=== PATIENT | male | born 1955 | race Caucasian/White ===

== ENCOUNTER 2017-10-05 13:50 | Emergency (ER) | payer MEDICAID, SELFPAY ==
[2017-10-05 13:51] VITALS: BP 162/97; PULSE 102; RESP 18; TEMP 36.7; O2SAT 96; BMI 26.9
== END 2017-10-05 15:20 | disposition left against medical advice (07) ==
PROVIDERS: Emergency Provider Emergency Medicine; Family Provider Preventive Medicine Occupational Medicine; PCP Preventive Medicine Occupational Medicine
DX: R69 Illness, unspecified (principal)

== ENCOUNTER → 2018-05-27 08:09 | Outpatient (CLI) | payer MEDICARE, SELFPAY ==
[2018-05-27 09:07] LABS: BUN 13 mg/dL (7-18); Creatinine, Serum 1.06 mg/dL (0.70-1.30); EST Glomerular Filtration Rate 75 mL/min (>60); Est Glom Filt Rate - Afr Amer 90 mL/min (>60)
== END ==
PROVIDERS: Family Provider Preventive Medicine Occupational Medicine; PCP Preventive Medicine Occupational Medicine
DX: M54.16 Radiculopathy, lumbar region (principal)
CPT/HCPCS: 36415; 82565; 84520

== ENCOUNTER 2019-04-23 23:41 | Emergency (ER) | payer MEDICARE, OTHER, SELFPAY ==
[2019-04-23 23:42] VITALS: BP 168/89; PULSE 86; RESP 24; TEMP 36.5; O2SAT 77; BMI 29.0
[2019-04-23 23:46] VITALS: O2SAT 99
[2019-04-23 23:52] VITALS: BP 145/91; PULSE 86; RESP 20; O2SAT 100
[2019-04-24] VITALS (9 sets, daily range): BP systolic 92–116; BP diastolic 60–83; PULSE 76–92; RESP 8–21; O2SAT 84–100
--- NOTE | 2019-04-24 00:30 | RAD_ITS ---
STUDY: X-RAY CHEST REASON FOR EXAM: Male, 63 years old. SOB, COPD TECHNIQUE: Single AP portable view of the chest. COMPARISON: 01/25/2017. FINDINGS: There is mild left basilar atelectasis. The lungs are slightly underexpanded with mild vascular crowding, otherwise clear. There is no demonstrated pleural abnormality. Normal size heart. Normal mediastinum and mere. Normal visualized pulmonary arteries. There is atherosclerotic calcification of the aortic arch with tortuosity. There are diffuse degenerative changes of the visualized thoracic spine. There is degenerative osteoarthritis of the bilateral shoulders. There is no demonstrated abnormality of the visualized soft tissue structures of the upper abdomen. RAD/Chest 1 View (Portable) IMPRESSION: Mild left basilar atelectasis, otherwise no acute cardiopulmonary process. Electronically Signed: Madeleine Rasheed MD at 1:12 EST , Service support ,
--- NOTE | 2019-04-24 00:45 | EKG12_ITS ---
Test Reason : SOB Blood Pressure : / mmHG Vent. Rate : 093 BPM Atrial Rate : 093 BPM P-R Int : 154 ms QRS Dur : 082 ms QT Int : 380 ms P-R-T Axes : 034 007 014 degrees QTc Int : 472 ms Normal sinus rhythm Normal ECG Confirmed by KAR ARREGUIN, KITTY ([id number]), movie editor JORGITO NGUYEN ([id number]) on 04/26/2019 8:22:49 AM Referred By: FELICIA Confirmed By:KITTY LAKHANI MD
[2019-04-24 01:07] LABS: Absolute Lymphocyte Count 3.92 X10^3/uL (0.83-4.51); Basophil# 0.06 X10^3/uL; Basophil% 0.8 % (0-1); Eosinophil# 0.16 X10^3/uL; Hematocrit 48.5 % (40-54); Hemoglobin 15.9 g/dL (13.0-16.5); Lymphocyte # 3.92 X10^3/ul (4.0); Lymphocyte % 49.3 % (19-41); Mean Corp Hgb Conc 32.8 g/dL (32-36); Mean Corpuscular Hgb 31.8 pg (27.0-32.0); Mean Platelet Vol. 10.1 fl (6.2-12.0); Monocyte% 10.1 % (0-10); NRBC Flagged by Analyzer 0 % (0-5); Neutrophil # 2.97 X10^3/uL (2.7-7.7); Neutrophil % 37.3 % (47-70); POSITIVE COUNT YES; Platelet Count 311 K/mm3 (150-450); RBC Distribution Width CV 13.3 % (11.6-14.6); RBC Distribution Width SD 48.2 fl (35.1-43.9)
[2019-04-24 01:19] LABS: Anion Gap 7 (5-15); BUN 6 mg/dL (7-18); BUN/Creat Ratio 6.4 RATIO (10-20); Calcium,Total 8.7 mg/dL (8.5-10.1); Chloride 112 mmol/L (98-107); Creatinine, Serum 0.94 mg/dL (0.70-1.30); EST Glomerular Filtration Rate 85 mL/min (>60); Est Glom Filt Rate - Afr Amer 103 mL/min (>60); Estimated Creatinine Clearance 78.35 ml/min; Glucose 109 mg/dL (74-106); Potassium 3.4 mmol/L (3.5-5.1); Sodium Level 143 mmol/L (136-145)
[2019-04-24 01:25] LABS: Differential Comment SCANNED; Differential Indicated SCAN CRITERIA MET
--- NOTE | 2019-04-24 01:57 | CT_ITS ---
STUDY: CTA CHEST REASON FOR EXAM: Male, 63 years old. HYPOXIA, BACK PAIN, SOB, FELL 3 WEEKS AGO, HX COPD, EMPHYSEMA, ASBESTOS EXPOSURE, SKIN CA, HTN RADIATION DOSAGE (If Supplied By Facility): CTDIvol = ( 10.07 ) mGy, DLP = ( 441.40 ) mGycm TECHNIQUE: The examination was performed with the intravenous administration of IV 75mL Isovue-370. Post-processing of the angiographic images was performed, with multiplanar reformation and 3D reconstruction. Individualized dose optimization techniques were used for this CT. COMPARISON: None. FINDINGS: Normal enhancement of the main pulmonary artery and right and left pulmonary arteries. Normal enhancement of the bilateral peripheral pulmonary arteries. There is no demonstrated pulmonary embolism. Normal thoracic aorta and visualized great vessels. There is no demonstrated aortic dissection. Normal heart and pericardium. Normal mediastinum. Normal hilar regions. Normal visualized trachea and bronchi. The lungs are well expanded. Minimal bilateral posterior dependent atelectasis, remainder the lungs are clear. Normal pleura. Normal chest wall structures. Normal osseous structures. Normal visualized upper abdomen. CT/CTA Chest W/WO Contrast IMPRESSION: Negative CTA chest examination, without a demonstrated pulmonary embolism or arterial dissection. Minimal bilateral basilar atelectasis, otherwise no acute cardiopulmonary disease. Electronically Signed: Madeleine Rasheed MD at 3:18 EST , Service support ,
--- NOTE | 2019-04-24 01:57 | ED.RN ---
MD aware pt dropped SpO2 to 84% with appropriate waveform. reapplied NC 4L
[2019-04-24] MEDS: Ipratropium/Albuterol Sulfate 3 ML AMPUL.NEB INHALATION (02:07)
[2019-04-24] MEDS: Albuterol 2.5 MG/3 ML VIAL.NEB. INHALATION (02:07)
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
== END 2019-04-24 05:26 | disposition home or self-care (01) ==
PROVIDERS: Emergency Provider Emergency Medicine; PCP Preventive Medicine Occupational Medicine
DX: J98.01 Acute bronchospasm (principal); F10.129 Alcohol abuse with intoxication, unspecified; F10.20 Alcohol dependence, uncomplicated; Z72.0 Tobacco use
CPT/HCPCS: 71045; 71275; 80048; 80320; 84484; 85025; 93005; 94640; 99285; Q9967; A4216; G0480; J2405

== ENCOUNTER 2019-07-11 03:30 | Emergency (ER) | payer MEDICARE, OTHER, SELFPAY ==
[2019-07-11 03:34] VITALS: BP 156/100; PULSE 99; RESP 28; TEMP 37.1; O2SAT 100; BMI 28.5
--- NOTE | 2019-07-11 03:45 | RAD_ITS ---
STUDY: X-RAY CHEST REASON FOR EXAM: Male, 63 years old. CHRONIC SOB -- HX OF COPD TECHNIQUE: AP portable COMPARISON: 04/24/2019. FINDINGS: The lungs are clear and expanded. There is no demonstrated pleural abnormality. Normal size heart. Normal mediastinum and mere. Normal visualized pulmonary arteries. Normal visualized aortic arch and descending thoracic aorta. There are diffuse degenerative changes of the visualized thoracic spine. Normal visualized ribs, clavicles, and shoulders. There is no demonstrated abnormality of the visualized soft tissue structures of the upper abdomen. RAD/Chest 1 View (Portable) IMPRESSION: Negative x-ray examination of the chest. Electronically Signed: Luiz Escudero, at 4:19 EDT Tel , Service support ,
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
--- NOTE | 2019-07-11 03:45 | EKG12_ITS ---
Test Reason : SOB Blood Pressure : / mmHG Vent. Rate : 086 BPM Atrial Rate : 086 BPM P-R Int : 166 ms QRS Dur : 082 ms QT Int : 380 ms P-R-T Axes : 032 011 027 degrees QTc Int : 454 ms Normal sinus rhythm Normal ECG Confirmed by ARGELIA ARREGUIN, DILAN ([id number]), editor book NEHA BANDA ([id number]) on 07/13/2019 9:34:13 AM Referred By: FAUSTO Confirmed By:DILAN STOUT MD
[2019-07-11 04:02] LABS: Absolute Lymphocyte Count 2.34 X10^3/uL (0.83-4.51); Absolute Neutrophil Count 4.1 X10^3/uL (2.0-7.7); Basophil# 0.05 X10^3/uL; Basophil% 0.7 % (0-1); Eosinophil# 0.14 X10^3/uL; Eosinophils% 1.9 % (0-5); Hematocrit 49.2 % (40-54); Hemoglobin 16.2 g/dL (13.0-16.5); Lymphocyte # 2.34 X10^3/ul (4.0); Mean Corp Hgb Conc 32.9 g/dL (32-36); Mean Corpuscular Volume 97.2 fL (80-94); Mean Platelet Vol. 9.5 fl (6.2-12.0); Monocyte# 0.94 X10^3/uL; Monocyte% 12.5 % (0-10); NRBC Flagged by Analyzer 0 % (0-5); Neutrophil # 4.05 X10^3/uL (2.7-7.7); Neutrophil % 53.5 % (47-70); Platelet Count 297 K/mm3 (150-450); RBC Distribution Width CV 13.3 % (11.6-14.6); RBC Distribution Width SD 47.9 fl (35.1-43.9); Red Blood Count 5.06 M/mm3 (4.6-6.2); White Blood Count 7.6 K/mm3 (4.4-11.0)
[2019-07-11 04:17] LABS: Anion Gap 9 (5-15); BUN 7 mg/dL (7-18); BUN/Creat Ratio 9.2 RATIO (10-20); Calcium,Total 8.8 mg/dL (8.5-10.1); Chloride 108 mmol/L (98-107); Creatinine, Serum 0.76 mg/dL (0.70-1.30); EST Glomerular Filtration Rate 108 mL/min (>60); Est Glom Filt Rate - Afr Amer 131 mL/min (>60); Glucose 106 mg/dL (74-106); Potassium 3.7 mmol/L (3.5-5.1); Sodium Level 141 mmol/L (136-145)
--- NOTE | 2019-07-11 04:18 | ED.DEP ---
ED Disposition - Plan for ED Patient: Disposition: Home or Assisted Living Instructions: ED COPD Flare Prescriptions: Prednisone [Deltasone] 40 mg PO DAILY 7 Days tab Prescription Printed Referrals: Ousmane Lopez DO [Primary Care Provider] - 3-5 Days if not improving Additional Instructions: Prednisone daily as needed for any shortness of breath or wheezing. Follow-up with your doctor as needed. Return if feeling worse.
[2019-07-11 04:32] VITALS: BP 138/80; PULSE 90; RESP 18; O2SAT 95
== END 2019-07-11 04:57 | disposition home or self-care (01) ==
PROVIDERS: Emergency Provider Emergency Medicine; PCP Preventive Medicine Occupational Medicine
DX: J44.1 Chronic obstructive pulmonary disease with (acute) exacerbation (principal); F17.200 Nicotine dependence, unspecified, uncomplicated; I10 Essential (primary) hypertension
CPT/HCPCS: 71045; 80048; 84484; 85025; 93005; 99285; A4216

== ENCOUNTER → 2019-07-26 15:22 | Outpatient (CLI) | payer MEDICARE, OTHER, SELFPAY ==
[2019-07-11 03:34] VITALS: BMI 28.5
--- NOTE | 2019-07-26 15:27 | RAD_ITS ---
STUDY: X-RAY - RIGHT SHOULDER REASON FOR EXAM: Male, 63 years old. Right shoulder pain after fall TECHNIQUE: 4 view(s) of the shoulder. COMPARISON: None. FINDINGS: Normal glenohumeral articulation. There is hypertrophic osteoarthrosis of the acromioclavicular joint with inferior osseous spur formation. Normal acromion. Normal humeral head and visualized proximal humerus. The soft tissue structures are unremarkable. Normal visualized pulmonary apex. RAD/Shoulder min 2 Views IMPRESSION: Osteoarthritis of the right acromioclavicular joint. Electronically Signed: Shiraz Rodriguez, at 15:50 EDT , Service support ,
== END ==
PROVIDERS: PCP Preventive Medicine Occupational Medicine; Referring Provider Student in an Organized Health Care Education/Training Program; Visit Provider Student in an Organized Health Care Education/Training Program
DX: M25.511 Pain in right shoulder (principal)
CPT/HCPCS: 73030

== ENCOUNTER → 2019-09-08 14:52 | Outpatient (CLI) | payer MEDICARE, OTHER, SELFPAY ==
--- NOTE | 2019-09-08 15:03 | EKG12_ITS ---
Test Reason : PREOP Blood Pressure : / mmHG Vent. Rate : 069 BPM Atrial Rate : 069 BPM P-R Int : 156 ms QRS Dur : 074 ms QT Int : 410 ms P-R-T Axes : 043 041 039 degrees QTc Int : 439 ms Normal sinus rhythm Normal ECG Confirmed by ZION ARREGUIN, SAIRA ([id number]), social media editor JORGITO NGUYEN ([id number]) on 09/12/2019 9:53:53 AM Referred By: Mark Sexton Confirmed By:PATRICIA DNOOVAN MD
[2019-09-08 15:46] LABS: Hematocrit 49.3 % (40-54); Mean Corp Hgb Conc 32.5 g/dL (32-36); Mean Corpuscular Hgb 32.3 pg (27.0-32.0); Mean Corpuscular Volume 99.4 fL (80-94); Mean Platelet Vol. 9.8 fl (6.2-12.0); Platelet Count 338 K/mm3 (150-450); RBC Distribution Width CV 13.7 % (11.6-14.6); RBC Distribution Width SD 50.8 fl (35.1-43.9); Red Blood Count 4.96 M/mm3 (4.6-6.2); White Blood Count 8.6 K/mm3 (4.4-11.0)
[2019-09-08 16:22] LABS: Anion Gap 6 (5-15); BUN 11 mg/dL (7-18); BUN/Creat Ratio 12.9 RATIO (10-20); Calcium,Total 8.9 mg/dL (8.5-10.1); Chloride 103 mmol/L (98-107); Creatinine, Serum 0.85 mg/dL (0.70-1.30); EST Glomerular Filtration Rate 96 mL/min (>60); Est Glom Filt Rate - Afr Amer 116 mL/min (>60); Glucose 93 mg/dL (74-106); Potassium 3.6 mmol/L (3.5-5.1); Sodium Level 137 mmol/L (136-145)
== END ==
PROVIDERS: Referring Provider Physician Assistant; Visit Provider Physician Assistant
DX: Z01.818 Encounter for other preprocedural examination (principal)
CPT/HCPCS: 36415; 80048; 85027; 93005

== ENCOUNTER → 2019-09-16 10:17 | Outpatient (CLI) | payer MEDICARE, OTHER, SELFPAY | PROVIDERS: PCP Preventive Medicine Occupational Medicine; Referring Provider Physician Assistant; Visit Provider Physician Assistant | DX: Z11.59 Encounter for screening for other viral diseases (principal) | CPT/HCPCS: 87635; G2023; U0003 ==

== ENCOUNTER 2019-10-24 00:53 | Observation (INO) | payer MEDICARE, OTHER, SELFPAY ==
[2019-10-24] VITALS (11 sets, daily range): BP systolic 122–156; BP diastolic 63–102; PULSE 65–96; RESP 12–16; TEMP 36.4–36.6; O2SAT 95–98; BMI 29.7; BMI 28.4
--- NOTE | 2019-10-24 00:57 | EKG12_ITS ---
Test Reason : CP Blood Pressure : / mmHG Vent. Rate : 084 BPM Atrial Rate : 084 BPM P-R Int : 158 ms QRS Dur : 076 ms QT Int : 386 ms P-R-T Axes : 036 004 019 degrees QTc Int : 456 ms Normal sinus rhythm Normal ECG Confirmed by ARGELIA ARREGUIN, DILAN ([id number]), multimedia editor MARITO STAPLES ([id number]) on 10/26/2019 10:46:13 AM Referred By: RAGHAVENDRA Confirmed By:DILAN STOUT MD
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
[2019-10-24] MEDS: 0.9% Normal Saline 1,000 ML 1000 ML IV (01:05)
[2019-10-24 01:06] LABS: Absolute Lymphocyte Count 2.14 X10^3/uL (0.83-4.51); Absolute Neutrophil Count 3.7 X10^3/uL (2.0-7.7); Basophil# 0.05 X10^3/uL; Basophil% 0.7 % (0-1); Eosinophil# 0.41 X10^3/uL; Eosinophils% 5.8 % (0-5); Hematocrit 48.7 % (40-54); Hemoglobin 16.2 g/dL (13.0-16.5); Lymphocyte # 2.14 X10^3/ul (4.0); Lymphocyte % 30.5 % (19-41); Mean Corp Hgb Conc 33.3 g/dL (32-36); Mean Corpuscular Hgb 32.5 pg (27.0-32.0); Mean Corpuscular Volume 97.6 fL (80-94); Mean Platelet Vol. 9.6 fl (6.2-12.0); Monocyte# 0.68 X10^3/uL; Monocyte% 9.7 % (0-10); NRBC Flagged by Analyzer 0 % (0-5); Neutrophil # 3.71 X10^3/uL (2.7-7.7); Neutrophil % 52.9 % (47-70); Platelet Count 325 K/mm3 (150-450); RBC Distribution Width CV 13.5 % (11.6-14.6); RBC Distribution Width SD 48.6 fl (35.1-43.9); Red Blood Count 4.99 M/mm3 (4.6-6.2)
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
[2019-10-24 01:24] LABS: Anion Gap 8 (5-15); BUN 6 mg/dL (7-18); BUN/Creat Ratio 6.7 RATIO (10-20); Chloride 107 mmol/L (98-107); Creatinine, Serum 0.89 mg/dL (0.70-1.30); EST Glomerular Filtration Rate 91 mL/min (>60); Est Glom Filt Rate - Afr Amer 110 mL/min (>60); Estimated Creatinine Clearance 80.06 ml/min; Glucose 81 mg/dL (74-106); Potassium 3.8 mmol/L (3.5-5.1); Sodium Level 143 mmol/L (136-145)
[2019-10-24 01:28] LABS: CPK Total, Creatine Kinase 136 U/L (39-308)
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
[2019-10-24] MEDS: Aspirin 81 MG TAB.CHEW 324 MG PO (02:26)
--- NOTE | 2019-10-24 02:49 | EKG12_ITS ---
Test Reason : CP ADMISSION Blood Pressure : / mmHG Vent. Rate : 067 BPM Atrial Rate : 067 BPM P-R Int : 162 ms QRS Dur : 078 ms QT Int : 422 ms P-R-T Axes : 044 008 027 degrees QTc Int : 445 ms Normal sinus rhythm Normal ECG When compared with ECG of 24-OCT-2019 01:07, MANUAL COMPARISON REQUIRED, DATA IS UNCONFIRMED Confirmed by KAR ARREGUIN, KITTY ([id number]), editorial director NEHA BANDA ([id number]) on 10/27/2019 3:56:26 PM Referred By: JANNY Confirmed By:KITTY LAKHANI MD
[2019-10-24] MEDS: Ipratropium/Albuterol Sulfate 3 ML AMPUL.NEB INHALATION ×2 (06:53→13:20)
[2019-10-24] MEDS: Pantoprazole Sodium 40 MG Tablet PO (09:52)
[2019-10-24] MEDS: Metoprolol(XL)Succ 25 MG Tablet PO (09:52)
[2019-10-24] MEDS: Multivitamins,Ther W-Minerals Tablet 1 TABLET PO (09:52)
[2019-10-24] MEDS: Gabapentin 800 MG Tablet PO ×2 (10:04→12:47)
--- NOTE | 2019-10-24 11:42 | DCINST_ITS ---
You will use the following diet at home:: Cardiac Your food should be the consistency of: Regular Discharge Activity: Return to Normal Activity Weight Bearing Status: Weight bearing as tolerated Call your doctor if you observe: Fever of 101 or Higher, Shortness of breath, Dizziness, Fainting spells, Chest pain, Increased palpitations (irregular heartbeat) Allergies/Adverse Reactions: Allergies tramadol Adverse Reaction (Verified 07/11/19 03:37) Other FAINTING Medications to take at Discharge Metoprolol(XL)Succ [Toprol Xl (Beta Edita)] 25 mg PO QHS 03/03/13 Pantoprazole Sodium [Protonix] 40 mg PO DAILY 03/03/13 Simvastatin [Zocor] 40 mg PO QHS 03/03/13 Gabapentin [Neurontin] 800 mg PO TIDCM 10/24/19 Umeclidinium Brm/Vilanterol Tr [Anoro Ellipta 62.5-25 Mcg INH] 1 puff IN DAILY 10/24/19 Primary Care Physician: Ousmane Lopez DO [Primary Care Provider] - Please follow up with your Primary Care Physician in: 2 week. Test Results: Test results from this visit will be discussed in further detail at your follow- up appointment, if applicable.
--- NOTE | 2019-10-24 12:58 | STRESSREP_ITS ---
Stress Test Report Exercise myocardial perfusion stress test. 63-year-old man with a history of chest pain. Stress protocol: Resting KG demonstrates normal sinus rhythm with a rate of 71 bpm normal intervals are noted resting blood pressure is 148/80 mmHg. The patient exercised according to regular Kenneth protocol for total duration of 4 minutes. The maximum heart rate attained was 141 bpm which was 90% of maximum predicted heart rate the maximum workload was 5.7 metabolic equivalents. At rest there were no ST or T wave changes noted suggest ischemia at peak exercise upsloping ST changes only were noted with no meet the criteria for ischemia. No clinical angina was noted the test was terminated due to dyspnea and leg discomfort. The resting blood pressure was 148/80 with a peak blood pressure 186/84 mmHg. Myocardial perfusion protocol. 12.0 mCi of technetium 99m sestamibi was injected at rest. The patient exercised according to regular Kenneth protocol for 4 minutes at peak exercise 34.5 mCi of technetium 99m sestamibi was injected stress images were obtained stress and rest images were reconstructed and compared in the short axis vert ical long horizontal long axis. Gated images were also obtained Perfusion SPECT analysis: Review of the stress images demonstrate normal uptake of tracer noted in all areas of the myocardium the resting images similarly demonstrate normal uptake of tracer noted in all areas of the myocardium. No reversibility is noted to suggest ischemia no previous infarct is noted. Gated SPECT analysis: The gated ejection fraction is noted to be 59%. Conclusion: Normal exercise myocardial perfusion stress test at a moderate workload. No clinical angina noted. Preserved ejection fraction.
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
== END 2019-10-24 11:42 | disposition home or self-care (01) ==
LOC: ED 02:24 → PCU 02:34
PROVIDERS: Admitting Provider Student in an Organized Health Care Education/Training Program; Emergency Provider Student in an Organized Health Care Education/Training Program; PCP Preventive Medicine Occupational Medicine; Visit Provider Hospitalist
DX: T75.4XXA Electrocution, initial encounter (principal); W86.1XXA Exposure to industrial wiring, appliances and electrical machinery, initial encounter; J44.9 Chronic obstructive pulmonary disease, unspecified; Y93.89 Activity, other specified; Y92.59 Other trade areas as the place of occurrence of the external cause; Y99.9 Unspecified external cause status; R07.89 Other chest pain; F17.210 Nicotine dependence, cigarettes, uncomplicated; Y90.6 Blood alcohol level of 120-199 mg/100 ml; K21.9 Gastro-esophageal reflux disease without esophagitis; E78.5 Hyperlipidemia, unspecified; I10 Essential (primary) hypertension; Z79.899 Other long term (current) drug therapy; F10.229 Alcohol dependence with intoxication, unspecified
CPT/HCPCS: 36415; 70450; 71045; 78452; 80048; 80320; 82550; 84484; 85025; 93005; 93017; 94640; 96360; 97802; 99218; 99285; 99406; A9500; J7030; A4216; G0378; G0480

== ENCOUNTER 2020-02-10 22:56 | Emergency (ER) | payer MEDICARE, OTHER, SELFPAY ==
[2019-10-24 03:03] VITALS: BMI 28.4
--- NOTE | 2020-02-10 00:45 | RAD_ITS ---
STUDY: X-RAY CHEST REASON FOR EXAM: Male, 64 years old. CHEST PAIN, SOB, WHEEZING. PT WAS FOUND UNRESPONSIVE BY FAMILY. FAMILY STARTED CPR. ALERT UPON EMS ARRIVAL. CURRENT SMOKER. TECHNIQUE: AP COMPARISON: 10/24/2019. FINDINGS: The lungs are clear and expanded. There is no demonstrated pleural abnormality. Normal size heart. Normal mediastinum and mere. Normal visualized pulmonary arteries. Normal visualized aortic arch and descending thoracic aorta. Normal visualized thoracic spine. Normal visualized ribs, clavicles, and shoulders. There is no demonstrated abnormality of the visualized soft tissue structures of the upper abdomen. RAD/Chest 1 View (Portable) IMPRESSION: Negative x-ray examination of the chest. No interval change. Electronically Signed: Luiz Escudero, at 1:12 EST Tel , Service support ,
[2020-02-10 22:57] VITALS: BP 126/94; PULSE 92; RESP 15; TEMP 36.7; O2SAT 88; BMI 27.3
[2020-02-10 23:39] VITALS: O2SAT 94
--- NOTE | 2020-02-10 23:39 | EKG12_ITS ---
Test Reason : INTOX Blood Pressure : / mmHG Vent. Rate : 080 BPM Atrial Rate : 080 BPM P-R Int : 164 ms QRS Dur : 082 ms QT Int : 388 ms P-R-T Axes : 043 001 015 degrees QTc Int : 447 ms Normal sinus rhythm Normal ECG Confirmed by KAR ARREGUIN, KITTY ([id number]), editor dictionary JORGITO NGUYEN ([id number]) on 02/13/2020 9:51:47 AM Referred By: HOLLY Confirmed By:KITTY LAKHANI MD
--- NOTE | 2020-02-10 23:46 | ED.DCSUM_ITS ---
History of Present Illness Chief Complaint: ETOH Intox Informant: Patient Narrative: 64-year-old male presents for evaluation after having an episode of syncope in his friend's driveway. He states they were just standing around talking. He states he had had 2 beers. He started to walk away and had an episode of syncope and fell and hit his head and lost consciousness. The circumstances are unclear as there is no 1 else here however apparently he received bystander CPR. Prior to EMS arrival the patient was awake and alert. Patient states he is not an everyday drinker. He does not use drugs. He states that he had a similar episode of syncope a couple of months ago and was admitted to the hospital but does not know why he had syncope. He denies injuries to his extremities. He has a superficial abrasion over his left eyebrow. He is alert and oriented x3. Prior similar symptoms: Yes Recent Illness/Hospitalization: Yes - Past Medical History (1) Alcohol abuse Status: Chronic (2) Tobacco use disorder Status: Chronic Past Medical History - Allergies and Home Meds Allergies/Adverse Reactions: Allergies tramadol Adverse Reaction (Verified 07/11/19 03:37) Other FAINTING Primary Care Physician: Ousmane Lopez DO [Primary Care Provider] - Past Medical History: - - COPD, hypertension hyperlipidemia Surgical History: - - right rotator cuff surgery Lives: Spouse/ Significant Other Smoking Status: Current every day smoker Alcohol: Occasional Drugs: None - Family History Maternal Family History: Reports: Cancer, Heart Disease Paternal Family History: Reports: Heart Disease Review of Systems General: Denies: Chills, Fever, Sweats Eyes: Denies: Visual changes - bilaterally, Diplopia ENT: Denies: Rhinorrhea, Sore throat Cardiovascular: Denies: Chest pain, Palpitations Respiratory: Reports: Dyspnea - Wheezing prior to arrival was given duo nebs and Solu-Medrol. Gastrointestinal: Denies: Abdominal pain, Nausea, Vomiting, Diarrhea, Melena, Hematochezia Genitourinary: Denies: Dysuria, Hematuria, Frequency Musculoskeletal: Denies: Back pain, Extremity Pain Skin: Reports: Abrasions - Facial abrasion left supraorbital ridge. Denies: Abscess Neurological: Denies: Headache, Parasthesia, Numbness Physical Exam Vital Signs/Narrative: Vital Signs Temp Pulse Resp BP 02/10/20 22:57 98.1 F 92 15 126/94 H General: Well nourished, No Acute Distress Head: Normocephalic, - - Superficial abrasion left supraorbital ridge Eyes: Perrl, EOMI ENT: Moist mucous membranes, No rhinorrhea, - - No facial bone tenderness. No jaw malocclusion. No hemotympanum. No epistaxis. Cardiovascular: Regular rate, Regular rhythm Respiratory: No distress, Chest nontender, Diminished - Bilateral bases, - Abdomen: Soft, Nontender Extremities: Nontender, No edema Skin: Normal color, No rash. Negative for: Cyanosis, Diaphoresis Neurological: Alert, Oriented x3, Cranial nerves II-XII grossly intact Psychological: Normal affect, Normal Mood Diagnostic/Tx/Re-eval Clinical Impression(s) from Imaging Studies Chest X-Ray 02/10/20 00:45 IMPRESSION: Negative x-ray examination of the chest. No interval change. Electronically Signed: Luiz Escudero, at 1:12 EST Tel , Service support , Brain CT 02/11/20 23:40 IMPRESSION: Negative unenhanced CT scan of the brain. Electronically Signed: Luiz Escudero, at 0:59 EST Tel , Service support , Cervical Spine CT 02/11/20 23:40 IMPRESSION: Negative unenhanced CT examination of the cervical spine for acute fracture. No significant interval change. Electronically Signed: Liuz Escudero, at 1:23 EST Tel , Service support , Laboratory Data 02/10/20 02/10/20 02/10/20 23:20 23:20 23:20 WBC 6.5 RBC 4.68 Hgb 15.1 Hct 46.2 MCV 98.7 H MCH 32.3 H MCHC 32.7 RDW Std Deviation 48.6 H RDW Coeff of Farnaz 13.2 Plt Count 423 MPV 9.6 Immature Gran % (Auto) 0.900 Neut % (Auto) 45.4 L Lymph % (Auto) 40.1 [place] % (Auto) 8.4 Eos % (Auto) 4.6 Baso % (Auto) 0.6 Absolute Neuts (auto) 2.9 Absolute Lymphs (auto) 2.59 Nucleated RBC % 0 Sodium 143 Potassium 3.9 Chloride 112 H Carbon Dioxide 24.0 Anion Gap 7 BUN 8 Creatinine 0.70 Estim Creat Clear Calc 70.30 Est GFR (MDRD) Af Amer 145 Est GFR (MDRD) Non-Af 119 BUN/Creatinine Ratio 11.4 Glucose 95 Calcium 8.9 Magnesium 2.3 Troponin I < 0.015 Urine Color Urine Clarity Urine pH Ur Specific [place] Urine Protein Urine Glucose (UA) Urine Ketones Urine Occult Blood Urine Nitrite Urine Bilirubin Urine Urobilinogen Ur Leukocyte Esterase Urine RBC Urine WBC Ur Squamous Epith Cells Urine Bacteria Urine Mucus Urine Opiates Screen Urine Methadone Screen Ur Barbiturates Screen Ur Phencyclidine Scrn Ur Amphetamines Screen U Methamphetamin-MDMA U Benzodiazepines Scrn Urine Cocaine Screen U Cannabinoids Screen Ur Drug Screen Comment Ethyl Alcohol 261.0 02/11/20 02/11/20 00:32 00:32 WBC RBC Hgb Hct MCV MCH MCHC RDW Std Deviation RDW Coeff of Farnaz Plt Count MPV Immature Gran % (Auto) Neut % (Auto) Lymph % (Auto) [place] % (Auto) Eos % (Auto) Baso % (Auto) Absolute Neuts (auto) Absolute Lymphs (auto) Nucleated RBC % Sodium Potassium Chloride Carbon Dioxide Anion Gap BUN Creatinine Estim Creat Clear Calc Est GFR (MDRD) Af Amer Est GFR (MDRD) Non-Af BUN/Creatinine Ratio Glucose Calcium Magnesium Troponin I Urine Color Yellow Urine Clarity Sl. Cloudy Urine pH 6.5 Ur Specific [place] 1.010 Urine Protein Negative Urine Glucose (UA) Normal Urine Ketones Negative Urine Occult Blood Negative Urine Nitrite Negative Urine Bilirubin Negative Urine Urobilinogen Normal Ur Leukocyte Esterase 100 H Urine RBC 0 SEEN Urine WBC 0-5 SEEN Ur Squamous Epith Cells 0-5 SEEN Urine Bacteria 0 SEEN Urine Mucus 0 SEEN Urine Opiates Screen NEGATIVE Urine Methadone Screen NEGATIVE Ur Barbiturates Screen NEGATIVE Ur Phencyclidine Scrn NEGATIVE Ur Amphetamines Screen NEGATIVE U Methamphetamin-MDMA NEGATIVE U Benzodiazepines Scrn NEGATIVE Urine Cocaine Screen NEGATIVE U Cannabinoids Screen NEGATIVE Ur Drug Screen Comment Ethyl Alcohol - Rhythm Strip Rhythm Strip: Sinus Rhythm Rate: 80 - EKG Initial EKG Interpretation: Sinus Rhythm, No Acute Injury Pattern - Medical Decision Making 64-year-old male presenting after an episode of syncope after falling in the driveway. It was reported that he got bystander CPR however after talking to him at length he states he remembers this happened again stopped it. By the time EMS arrived he was alert and awake. He states he only drank 2 beers but the blood alcohol was 260. EKG was sinus rhythm without signs of ischemia. Chest x-ray shows no acute pathology. CT brain and cervical spine are negative. Blood work was unremarkable. Patient had stable vital signs. He is nontoxic- appearing. I feel at this point after monitoring for a couple hours he is safe to be discharged home with a sober ride. He is ambulatory. Impression: 1. EtOH intoxication 2. Syncope 3. Facial abrasion 4. Closed head injury ED Disposition - Plan for ED Patient: Disposition: Home or Assisted Living Instructions: ED INTOXICATION Alcohol, ED Head Injury Closed Ch, ED Fainting Uncertain Cause Referrals: Ousmane Lopez DO [Primary Care Provider] -
[2020-02-10 23:52] LABS: Absolute Lymphocyte Count 2.59 X10^3/uL (0.83-4.51); Absolute Neutrophil Count 2.9 X10^3/uL (2.0-7.7); Basophil# 0.04 X10^3/uL; Basophil% 0.6 % (0-1); Eosinophils% 4.6 % (0-5); Hematocrit 46.2 % (40-54); Hemoglobin 15.1 g/dL (13.0-16.5); Lymphocyte # 2.59 X10^3/ul (4.0); Lymphocyte % 40.1 % (19-41); Mean Corp Hgb Conc 32.7 g/dL (32-36); Mean Corpuscular Hgb 32.3 pg (27.0-32.0); Mean Corpuscular Volume 98.7 fL (80-94); Mean Platelet Vol. 9.6 fl (6.2-12.0); Monocyte# 0.54 X10^3/uL; Monocyte% 8.4 % (0-10); NRBC Flagged by Analyzer 0 % (0-5); Neutrophil # 2.93 X10^3/uL (2.7-7.7); Neutrophil % 45.4 % (47-70); Platelet Count 423 K/mm3 (150-450); RBC Distribution Width CV 13.2 % (11.6-14.6); RBC Distribution Width SD 48.6 fl (35.1-43.9); Red Blood Count 4.68 M/mm3 (4.6-6.2); White Blood Count 6.5 K/mm3 (4.4-11.0)
[2020-02-10 23:56] VITALS: BP 104/68; PULSE 75; RESP 14; O2SAT 95
[2020-02-11 00:14] LABS: Anion Gap 7 (5-15); BUN 8 mg/dL (7-18); BUN/Creat Ratio 11.4 RATIO (10-20); Calcium,Total 8.9 mg/dL (8.5-10.1); Chloride 112 mmol/L (98-107); EST Glomerular Filtration Rate 119 mL/min (>60); Est Glom Filt Rate - Afr Amer 145 mL/min (>60); Glucose 95 mg/dL (74-106); Magnesium 2.3 mg/dL (1.6-2.6); Potassium 3.9 mmol/L (3.5-5.1); Sodium Level 143 mmol/L (136-145)
[2020-02-11] MEDS: 0.9% Normal Saline 1,000 ML 1000 ML IV (00:23)
[2020-02-11 00:46] LABS: Bacteria 0 SEEN /hpf (None Seen); Mucous, Urine 0 SEEN /hpf (<or=2+); Red Blood Cells-Urine 0 SEEN /hpf (0-5)
[2020-02-11 00:51] LABS: Color, Urine Yellow (Yellow); Glucose, Dipstick Normal (Normal); Ketone-Dipstick Negative (Negative); Leukocyte Esterase-Dipstick 100 /ul (Negative); Nitrite-Dipstick Negative (Negative); Occult Blood-Urine Negative /ul (Negative); Protein-Dipstick Negative (Negative); Urine Bilirubin Dipstick Negative (Negative); Urine Clarity Sl. Cloudy (Clear); Urine Urobilinogen Normal (Normal); Urine pH 6.5 (5.0 - 8.0)
[2020-02-11 01:04] VITALS: RESP 18
[2020-02-11 01:15] LABS: Amphetamine Urine VISTA NEGATIVE (<1000 ng/mL); Barbiturate Urine VISTA NEGATIVE (< 200 ng/mL); Benzodiazepine Urine VISTA NEGATIVE (< 200 ng/mL); Cocaine Urine VISTA NEGATIVE (< 300 ng/mL); Ecstacy Urine VISTA NEGATIVE (< 500 ng/mL); Methadone Urine VISTA NEGATIVE (< 300 ng/mL); PCP Urine VISTA NEGATIVE (< 25 ng/mL); THC Urine VISTA NEGATIVE (< 50 ng/mL); Vista UDS pH Range 6
[2020-02-11 01:20] LABS: White Blood Cells 0-5 SEEN /hpf (0-5)
[2020-02-11 01:21] LABS: Squamous Epithelial Cells - UA 0-5 SEEN /hpf (0-5)
[2020-02-11 02:08] VITALS: BP 98/65; PULSE 79; RESP 16
[2020-02-11 02:49] VITALS: BP 115/68; PULSE 89; RESP 18; O2SAT 96
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
== END 2020-02-11 02:50 | disposition home or self-care (01) ==
LOC: ED 02-11 02:49
PROVIDERS: Emergency Provider Student in an Organized Health Care Education/Training Program; PCP Preventive Medicine Occupational Medicine
DX: F10.129 Alcohol abuse with intoxication, unspecified (principal); R55 Syncope and collapse; S00.81XA Abrasion of other part of head, initial encounter; S09.90XA Unspecified injury of head, initial encounter; F17.200 Nicotine dependence, unspecified, uncomplicated; I10 Essential (primary) hypertension; E78.5 Hyperlipidemia, unspecified; W19.XXXA Unspecified fall, initial encounter
CPT/HCPCS: 70450; 71045; 72125; 80048; 80307; 80320; 81001; 83735; 84484; 85025; 93005; 96360; 96361; 99285; G0480

== ENCOUNTER → 2020-09-13 16:33 | Outpatient (CLI) | payer MEDICARE, OTHER, SELFPAY | PROVIDERS: PCP Preventive Medicine Occupational Medicine; Visit Provider Otolaryngology | DX: J32.9 Chronic sinusitis, unspecified (principal) | CPT/HCPCS: 87070; 87205 ==

== ENCOUNTER 2020-12-09 06:22 | Emergency (ER) | payer MEDICARE, OTHER, SELFPAY ==
[2020-12-09 06:23] VITALS: BP 176/134; PULSE 72; RESP 18; TEMP 36.2; O2SAT 97; BMI 25.4
--- NOTE | 2020-12-09 07:13 | EDS_ITS ---
HPI History of Present Illness Chief Complaint: Abscess Informant: patient Onset/Context/Timing Onset: Days (6 days) Context: Gradual Onset Current Severity: Severe Maximum Severity: Severe Narrative Narrative: Patient presents with pain and swelling to the distal left thumb. Patient states symptoms started 6 days ago and was just sore at the time. He denies any known trauma or foreign body. Symptoms continue to progress throughout the week and he was seen at [facility] yesterday. I&D was attempted but no drainage noted. He was started on Keflex. Patient presents here this morning stating that he cannot tolerate the pain. No fever or chills. [facility] Medical History GERD (gastroesophageal reflux disease) Hypertension Home Medications metoprolol succinate 25 mg PO QHS 03/03/13 [History Last Taken 10/22/19] pantoprazole 40 mg PO DAILY 03/03/13 [History Last Taken 10/22/19] simvastatin 40 mg PO QHS 03/03/13 [History Last Taken 10/22/19] gabapentin 800 mg PO TIDCM 10/24/19 [History Last Taken 10/23/19 19:00] umeclidinium-vilanterol 1 puff IN DAILY 10/24/19 [History Last Taken 10/23/19] oxycodone 5 mg PO Q6H PRN 3 Days #10 tab 12/09/20 [Rx Last Taken Unknown] sulfamethoxazole-trimethoprim [Bactrim DS] 1 tab PO BID #20 tab 12/09/20 [Rx Last Taken Unknown] Allergy/AdvReac Type Severity Reaction Status Date / Time tramadol AdvReac Other Verified 12/09/20 06:25 Social History Smoking Status: Current every day smoker tobacco type: cigarettes ROS ROS ED Constitutional Constitutional ED: Denies chills or fever(s) Eyes Eyes: Denies change in vision ENT ENT ED: Denies sore throat Cardiovascular Cardiovascular: Denies chest pain Respiratory/Chest Respiratory/Chest: Denies cough or dyspnea Gastrointestinal Gastrointestinal: Denies abdominal pain, diarrhea, nausea or vomiting Genitourinary Genitourinary ED: Denies dysuria Musculoskeletal Musculoskeletal: Reports arthralgias; Denies back pain Integumentary Denies rash Neurologic Neurologic: Denies headache(s) or weakness Allergic/Immunologic Allergic/Immunologic ED: Denies urticaria EXAM Physical Exam Const Vital Signs: 12/09/20 06:23 Temperature 97.2 F L Temperature Source Temporal Pulse Rate 72 Respiratory Rate 18 Blood Pressure 176/134 H Blood Pressure Mean 148 Pulse Ox 97 Oxygen Delivery Method Room Air Positive well nourished and well developed General Appearance ED: well developed HEENT Reports normocephalic and head/scalp atraumatic Eyes PERRL and EOMs intact bilaterally Neck supple Chest Wall inspection of chest normal and palpation of chest normal Resp normal respiratory effort and clear to auscultation bilaterally Cardio regular rate and regular rhythm GI normal to inspection, nondistended, normoactive bowel sounds Palpation: soft Extremity Extremity Narrative: Pain and swelling over the pulp of the left thumb consistent with a felon. Decreased range of motion secondary to pain, but no focal tenderness over the proximal flexor tendon. No sign of flexor tenosynovitis at this time. Neuro oriented x3 and no sensory deficits noted Sensorium / Orientation: alert Motor Exam: strength 5/5 throughout Psych mental status grossly normal MDM MDM MDM Narrative Medical decision making narrative: Patient was given oxycodone for pain. I&D of the left thumb performed. Please see procedure note. Treatment and Re-Evaluation Comments:: Patient is already on Keflex. We will add Bactrim as well as oxycodone for pain. He is referred to hand surgery at [place] for close follow- up. Procedures Other Procedures Procedure(s): I&D left thumb felon: Digital block is performed using 6 cc 1% lidocaine. Wound is cleansed and 1 cm incision is made on the ulnar aspect of the left distal thumb using a #11 blade. Return of blood and small amount of pus. Curved hemostats were used to break up the loculations. Dressing is applied. Discharge Plan Triage Chief Complaint: Abscess ED Provider: Gudelia Daniels Dx/Rx/DC Orders Clinical Impression: Felon of digit Instructions: ED Abscess Incision And Drainage Prescriptions: New sulfamethoxazole-trimethoprim [Bactrim DS] 800-160 mg tablet 1 tab PO BID Qty: 20 RF: 0 oxycodone 5 mg tablet 5 mg PO Q6H PRN (Reason: pain) 3 Days Qty: 10 RF: 0 No Action simvastatin 40 MG tablet 40 mg PO QHS RF: 0 pantoprazole 40 MG tablet 40 mg PO DAILY RF: 0 metoprolol succinate 25 MG tablet 25 mg PO QHS RF: 0 gabapentin 800 MG tablet 800 mg PO TIDCM RF: 0 umeclidinium-vilanterol 62.5-25 mcg/actuation blister with device 1 puff IN DAILY RF: 0 Primary Care Provider: Ousmane Lopez Referrals: Nehemias Gaviria MD [NON-STAFF] - As soon as possible Ousmane Lopez DO [Primary Care Provider] - Activity Restrictions/Additional Instructions: As discussed please follow-up with hand surgery as soon as possible. Dr. Colunga's information has been provided for you. When you call advised them that you were treated for a felon of the left thumb with incision and drainage. Disposition Disposition: Home, Self Care
[2020-12-09] MEDS: oxyCODONE 5 MG Tablet 10 MG PO (08:21)
[2020-12-09 09:10] VITALS: PULSE 78; RESP 16; O2SAT 97
[2020-12-09] MEDS: Lidocaine 1% (20 ml mdv) 20 ML Vial INFILT (09:25)
== END 2020-12-09 09:26 | disposition home or self-care (01) ==
PROVIDERS: Emergency Provider Emergency Medicine; PCP Preventive Medicine Occupational Medicine
DX: L03.012 Cellulitis of left finger (principal); F17.210 Nicotine dependence, cigarettes, uncomplicated
CPT/HCPCS: 99283

== ENCOUNTER 2021-11-20 22:13 | Emergency (ER) | payer MEDICARE, OTHER, SELFPAY ==
[2021-11-20 22:14] VITALS: BP 156/83; PULSE 93; RESP 16; TEMP 36.6; O2SAT 96; BMI 29.2
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
[2021-11-20] MEDS: Diphth,Pertuss(Acell),Tet Vac 0.5 ML Vial IM (23:19)
[2021-11-20] MEDS: Lidocaine 1% (20 ml mdv) 20 ML Vial 5 ML INFILT (23:22)
--- NOTE | 2021-11-21 | ED.RN ---
THIS RN IN TO DISCHARGE PATIENT, PATIENT STATES HE DOES NOT FEEL SAFE TO RETURN HOME. PATIENT STATES [facility] NOTIFIED. [facility] REACH[facility] TO [facility] AND [facility]. BOTH HAVE NO BEDS AVAILABLE AT THIS TIME. [facility] REACHED OUT TO [facility] WHICH STATES THEY HAVE NO FURTHER RESOURCES. PATIENT GIVEN THE OPTION TO STAY IN ED TONIGHT AND TALK WITH SOCIAL WORK IN THE MORNING. SOCIAL WORK CONSULT PLACED.
[2021-11-21 04:27] VITALS: PULSE 88; RESP 16; O2SAT 98
[2021-11-21] MEDS: Ibuprofen 200 MG Tablet 400 MG PO (04:29)
[2021-11-21 08:00] VITALS: RESP 14
--- NOTE | 2021-11-21 09:30 | ED.RN ---
THIS RN WENT IN TO SPEAK WITH PATIENT. PTS SISTER AND BROTHER AT BEDSIDE. PT STATES HE FEELS SAFE GOING HOME WITH HIS SISTER. HE STATES VERBAL UNDERSTANDING ON HOW TO CARE FOR STITCHES. HE ASKS THAT IF SOCIAL WORK CALLS TO FOLLOW UP THAT THE SW CALLS AT [phone] AND NOT HIS LISTED PHONE NUMBER.
[2021-11-21 09:33] VITALS: PULSE 79; RESP 16; O2SAT 99
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
== END 2021-11-21 09:33 | disposition home or self-care (01) ==
PROVIDERS: Emergency Provider Emergency Medicine; PCP Preventive Medicine Occupational Medicine; Visit Provider Emergency Medicine
DX: S61.412A Laceration without foreign body of left hand, initial encounter (principal); F17.210 Nicotine dependence, cigarettes, uncomplicated; I10 Essential (primary) hypertension; K21.9 Gastro-esophageal reflux disease without esophagitis; Z79.899 Other long term (current) drug therapy; X58.XXXA Exposure to other specified factors, initial encounter
CPT/HCPCS: 12002; 90715; 96372; 99284

== ENCOUNTER → 2022-03-06 | Outpatient (CLI) | payer MEDICARE, OTHER, SELFPAY ==
[2022-03-06 14:46] LABS: PSA,Total- Diagnostic 3.77 ng/mL (0.0-4.0)
== END | disposition home or self-care (01) ==
LOC: LAB 13:24
PROVIDERS: PCP Preventive Medicine Occupational Medicine; Referring Provider Registered Nurse; Visit Provider Registered Nurse
DX: R97.20 Elevated prostate specific antigen [PSA] (principal)
CPT/HCPCS: 36415; 84153

== ENCOUNTER → 2023-09-07 | Outpatient (CLI) | payer MEDICARE, OTHER, SELFPAY ==
[2023-09-07 21:48] LABS: PSA,Total - Annual Screen 3.97 ng/mL (0.00-4.00)
== END | disposition home or self-care (01) ==
PROVIDERS: PCP Preventive Medicine Occupational Medicine; Referring Provider Nurse Practitioner; Visit Provider Nurse Practitioner
DX: Z12.5 Encounter for screening for malignant neoplasm of prostate (principal)
CPT/HCPCS: 36415; 84153; G0103

== ENCOUNTER 2024-02-25 18:10 | Emergency (ER) | payer MEDICARE, OTHER, SELFPAY ==
[2024-02-25 18:11] VITALS: BP 155/97; PULSE 88; RESP 16; TEMP 36.3; O2SAT 93; BMI 31.1
--- NOTE | 2024-02-25 18:32 | CT_ITS ---
EXAM: CT CERVICAL SPINE WITHOUT INTRAVENOUS CONTRAST CLINICAL INDICATION: injury TECHNIQUE: Helically acquired images were obtained of the cervical spine without intravenous contrast. 2D reformatted images were reviewed. This CT exam was performed using one or more of the following dose reduction techniques: automated exposure control, adjustment of the mA and/or kV according to patient size, and/or use of iterative reconstruction technique. RADIATION DOSE: CTDIvol = 20.41 mGy, DLP = 470.14 mGy-cm COMPARISON: February 11, 2020. FINDINGS: VERTEBRAE: Straightening of the usual lordotic curvature. DISCS/SPINAL CANAL/NEURAL FORAMINA: Moderate-marked disc space narrowing at C3-C6 and C7-T1. Mild anterior and posterior spondylosis, most pronounced at C5-6. Minimal narrowing of the ventral thecal sac at C5-6, AP diameter of the canal roughly 1 cm, borderline stenotic. SOFT TISSUES: Unremarkable. No prevertebral soft tissue swelling. LYMPH NODES: Unremarkable. No cervical adenopathy. LUNG APICES: Unremarkable as visualized. Clear. CT/Spine Cervical without Contras IMPRESSION: Degenerative changes. No fracture or subluxation. Electronically Signed: Eva Peacock MD at 21:19 EST ,
--- NOTE | 2024-02-25 18:32 | CT_ITS ---
EXAM: CT HEAD WITHOUT INTRAVENOUS CONTRAST CLINICAL INDICATION: head injury TECHNIQUE: Multiple axial images were obtained of the head without intravenous contrast. This CT exam was performed using one or more of the following dose reduction techniques: automated exposure control, adjustment of the mA and/or kV according to patient size, and/or use of iterative reconstruction technique. RADIATION DOSE: CTDIvol = 44.99 mGy, DLP = 812.98 mGy-cm. COMPARISON: February 11, 2020. FINDINGS: BRAIN AND EXTRA-AXIAL SPACES: Unremarkable. No intra- or extra-axial hemorrhage. No evidence of acute infarct. No intracranial mass or mass effect. There is preservation of the mckay/white matter interface. Posterior fossa structures are unremarkable. Ventricles are appropriate for age. No hydrocephalus. Basal cisterns are patent. BONES/JOINTS: Unremarkable. No discrete lytic or blastic abnormalities. SINUSES: Unremarkable as visualized. Clear. MASTOID AIR CELLS: Unremarkable. Clear. ORBITS: Visualized globes, extraocular muscles, optic nerves and retrobulbar fat appear unremarkable. CT/Brain/Head without Contrast IMPRESSION: Negative head/brain CT without intravenous contrast. Electronically Signed: Eva Peacock MD at 21:02 EST ,
[2024-02-25 18:37] VITALS: BP 150/94
[2024-02-25] MEDS: Morphine 4 MG/ML Syringe IM (18:37)
--- NOTE | 2024-02-25 19:11 | EDS_ITS ---
HPI History of Present Illness Chief Complaint: Other, Pain/Inj Informant: patient Narrative Narrative: Brought in by EMS increasing upper neck pain throughout the day. 2 weeks ago had a fall off a 6 foot ladder injuring his neck. States had pain. There is been no radicular pain down his arm no weakness or paresthesias. Couple hours of waking up increasing pain. No new injuries. He has had back surgery in the past he is on gabapentin. Pain is worsened for which she came by EMS. PFSH PFS Medical History Hypercholesteremia Back pain GERD (gastroesophageal reflux disease) Hypertension Home Medications ?Medication ?Instructions ?Recorded ?Last Taken ?Type metoprolol succinate 25 mg 25 mg PO QHS BP 03/03/13 10/22/19 History tablet,extended release 24 hr pantoprazole 40 mg tablet,delayed 40 mg PO DAILY Reflux 03/03/13 10/22/19 History release simvastatin 40 mg tablet 40 mg PO QHS cholesterol 03/03/13 10/22/19 History gabapentin 800 mg tablet 800 mg PO TIDCM pain 10/24/19 10/23/19 19:00 History umeclidinium 62.5 mcg-vilanterol 1 puff IN DAILY asthma 10/24/19 10/23/19 History 25 mcg/actuation powdr for inhalation omeprazole 40 mg capsule,delayed 40 mg PO DAILY 11/20/21 Unknown History release albuterol sulfate 90 mcg/actuation 2 puff inhalation Q4H PRN PRN 02/25/24 Unknown History aerosol inhaler wheezing oxycodone-acetaminophen 5 mg-325 1 tab PO Q6H PRN PRN Pain 3 days 02/25/24 Unknown Rx mg tablet #12 TABLETS Allergy/AdvReac Type Severity Reaction Status Date / Time tramadol AdvReac Other Verified 02/25/24 18:16 Surgical History Previous back surgery Social History Smoking Status: Current every day smoker tobacco type: cigarettes ROS ROS ED Constitutional Constitutional ED: Denies chills, fever(s) or sweats Eyes Eyes: Denies change in vision ENT ENT ED: Denies dysphagia or sore throat Cardiovascular Cardiovascular: Denies chest pain, leg edema, palpitations or racing heartbeat Respiratory/Chest Respiratory/Chest: Denies cough, dyspnea or dyspnea on exertion Gastrointestinal Gastrointestinal: Denies abdominal pain, diarrhea, nausea or vomiting Genitourinary Genitourinary ED: Denies dysuria, hematuria or urinary frequency Musculoskeletal Musculoskeletal: Reports neck pain; Denies back pain or extremity pain Integumentary Denies rash or wounds Neurologic Neurologic: Reports headache(s); Denies paresthesias or weakness EXAM Physical Exam Const Vital Signs: 02/25/24 18:11 02/25/24 18:22 02/25/24 18:37 Temperature 97.4 F L Temperature Source Temporal Pulse Rate 88 Respiratory Rate 16 Respiratory Pattern Normal Blood Pressure 155/97 H 150/94 H Blood Pressure Mean 116 112 Pulse Ox 93 Oxygen Delivery Method Room Air Positive well nourished and well developed Constitutional Narrative: Nontoxic uncomfortable General Appearance ED: well developed HEENT Reports moist mucous membranes normocephalic and atraumatic Eyes EOMs intact bilaterally and conjunctivae normal General Eye ED: Yes normal appearance of both eyes Neck no lymphadenopathy and supple Neck Narrative: Tender palpation upper cervicals near the occiput. No step-off. General: tenderness Chest Wall inspection of chest normal and palpation of chest normal Chest: Negative for tenderness Resp normal respiratory effort and normal air movement Effort and Inspection: symmetric chest movement; Negative for respiratory distress Cardio regular rate, regular rhythm and no murmurs Peripheral Pulses: pulses 2+ throughout GI normal to inspection, nondistended, normoactive bowel sounds and non-tender Palpation: Negative for guarding or rebound tenderness present Back/Spine no CVA tenderness and no thoracic nor lumbar tenderness Extremity normal to inspection General Extremety ED: Negative for edema or tenderness General Extremity: Negative for edema Neuro oriented x3, CN's II-XII intact bilaterally and no sensory deficits noted Neuro Narrative: No focal deficits. No arm weakness or paresthesias. Sensorium / Orientation: awake and alert Skin no rashes or lesions noted and no wounds MDM MDM MDM Narrative Medical decision making narrative: Interventions / MDM: Differential diagnosis: Neck strain Diagnosis considered but do not suspect: Intracranial hemorrhage/fracture however CT negative. My EKG interpretation: N/A Imaging independently reviewed and interpreted by myself: CT scan head/cervical spine: No intracranial hemorrhage. Degenerative changes cervical spine without fracture. Also read by radiology. External documents reviewed: N/A Test considered but not ordered:N/A ED course: Patient increasing neck pain today had a fall off a ladder 2 weeks ago he was not evaluated from his injuries. Order for morphine IM. Trauma scan head and neck with his injury 2 weeks ago and neck pain that is worsened today. Reevaluation pain was more controlled. CAT scans were negative for fracture or bleed. Discussed degenerative changes with the patient. He is given short prescription for oxycodone use as needed. Outpatient follow-up. All questions were answered. Re-evaluation: stable Disposition discussed with patient/family/significant other: Patient Case discussed with consulting clinician: N/A This note was generated with [employer] dictation software. It may contain incorrect words, spelling, and punctuation that were not noted in checking the note before signing. Radiography Diagnostic Testing: Clinical Impression(s) from Imaging Studies Brain CT 02/25/24 18:32 IMPRESSION: Negative head/brain CT without intravenous contrast. Electronically Signed: Eva Peacock MD at 21:02 EST Reading Location ID and State: [facility] / [place] Tel , Service support , Cervical Spine CT 02/25/24 18:32 IMPRESSION: Degenerative changes. No fracture or subluxation. Electronically Signed: Eva Peacock MD at 21:19 EST , Discharge Plan Triage Chief Complaint: Other, Pain/Inj Other Complaint: Ear Problem ED Provider: Kamlesh Horne Dx/Rx/DC Orders Clinical Impression: Acute strain of neck muscle, Degenerative arthritis of cervical spine Instructions: ED Neck Sprain or Strain, ED Osteoarthritis Prescriptions: New oxycodone-acetaminophen 5-325 mg tablet 1 tab PO Q6H PRN PRN (Reason: Pain) 3 Days Qty: 12 0RF No Action simvastatin 40 MG tablet 40 mg PO QHS pantoprazole 40 MG tablet 40 mg PO DAILY metoprolol succinate 25 MG tablet 25 mg PO QHS gabapentin 800 MG tablet 800 mg PO TIDCM umeclidinium-vilanterol 62.5-25 mcg/actuation blister with device 1 puff IN DAILY Patient Comments: INHALE 1 PUFF BY MOUTH ONCE DAILY omeprazole 40 mg capsule,delayed release(DR/EC) 40 mg PO DAILY albuterol sulfate 90 mcg/actuation HFA aerosol inhaler 2 puff INHALATION Q4H PRN PRN (Reason: wheezing) Primary Care Provider: Ousmane Lopez Referrals: Ousmane Lopez DO [Primary Care Provider] - 1-2 Weeks Activity Restrictions/Additional Instructions: CT brain/cervical spine negative for bleed or fracture. Degenerative changes of cervical spine noted. Take pain medicines as prescribed. Follow-up your doctor for reevaluation. Print Language: Citizen Of [place] Disposition Disposition: Home, Self Care Discharge Date/Time: 02/25/24 21:50
== END 2024-02-25 21:50 | disposition home or self-care (01) ==
PROVIDERS: Emergency Provider Emergency Medicine; PCP Preventive Medicine Occupational Medicine; Visit Provider Emergency Medicine
DX: S16.1XXA Strain of muscle, fascia and tendon at neck level, initial encounter (principal); M47.812 Spondylosis without myelopathy or radiculopathy, cervical region; E78.00 Pure hypercholesterolemia, unspecified; F17.210 Nicotine dependence, cigarettes, uncomplicated; Z79.51 Long term (current) use of inhaled steroids; Z79.899 Other long term (current) drug therapy; X58.XXXA Exposure to other specified factors, initial encounter
CPT/HCPCS: 70450; 72125; 96372; 99285

== ENCOUNTER 2024-09-08 13:16 | Outpatient (CLI) | payer MEDICARE, OTHER, SELFPAY ==
[2024-09-08 14:14] LABS: PSA,Total - Annual Screen 3.19 ng/mL (0.02-4.00)
== END 2024-09-08 23:59 | disposition home or self-care (01) ==
LOC: LAB 13:16
PROVIDERS: PCP Preventive Medicine Occupational Medicine; Referring Provider Nurse Practitioner; Visit Provider Nurse Practitioner
DX: Z12.5 Encounter for screening for malignant neoplasm of prostate (principal)
CPT/HCPCS: 36415; 84153; G0103

== ENCOUNTER 2024-12-01 14:08 | Emergency (ER) | payer MEDICARE, OTHER, SELFPAY ==
[2024-12-01] VITALS (7 sets, daily range): BP systolic 117–143; BP diastolic 80–102; PULSE 61–85; RESP 16–18; TEMP 36.7–37; O2SAT 94–95; BMI 30.2
--- NOTE | 2024-12-01 14:36 | ED.VIS.FALL ---
HPI HPI - Fall History of Present Illness Chief Complaint: Trauma Narrative Narrative: Chief complaint and HPI: 69-year-old male with past medical history of HTN, HLD, GERD presents for evaluation of right heel pain after a fall. Patient states he was on a ladder approximately 6 feet high when he fell off. States he landed straight up on his right lower extremity. States that he was not wearing shoes and that he landed on concrete. States he immediately felt pain and a crack in his right heel. Patient states that the pain radiates up into his right knee. He was able to ambulate after the incident and his friend brought him to the emergency department. Not on blood thinners. Did not hit his head. No LOC. Denies any numbness or tingling, weakness, abdominal pain, back pain, nausea, vomiting. Review of systems: See HPI Medications: As listed on the chart Allergies: As listed on the chart PFSH: Per chart Vital signs: As listed on the chart. Reviewed. Physical exam: Gen: A&O x3, NAD Head: Normocephalic, atraumatic Eyes: No sclera icterus, conjunctiva clear, PERRL, EOMI ENT: TMs clear BL, moist mucous membranes, no swelling/lacerations/blood in the mouth or the nares, No nasal septal hematoma, no facial tenderness, face atraumatic Neck: Trachea midline, No JVD, Nontender, full range of motion CV: RRR, no murmurs, no chest wall TTP Resp: Lungs CTA BL, no w/r/c GI: Abd soft, non-distended, non-tender, no r/r/g Musc: Full ROM of all the extremities including the right lower extremity, tender to palpation to the right calcaneus diffusely otherwise foot, ankle, tib-fib, knee, femur, hip nontender to palpation -states he can feel the pain radiating from his calcaneus into his knee, no knee instability, small abrasion to the right ankle but states that this is from several days ago. Compartments soft. No deformity. DP/PT pulses +2 bilaterally. Good capillary refill. Sensation intact. No spinal tenderness to palpation. No bony step-offs. No spinal perimuscular tenderness. Achilles tendon intact. Skin: Warm, dry, intact Neuro: Alert, oriented, grossly intact, sensation intact, GCS 15 Psych: Cooperative, appropriate mood and affect [facility] Medical History (Updated 12/01/24 @ 14:31 by Thelma Kelly) Enlarged prostate Hypercholesteremia Back pain GERD (gastroesophageal reflux disease) Hypertension Home Medications ?Medication ?Instructions ?Recorded ?Last Taken ?Type metoprolol succinate 25 mg 25 mg PO QHS BP 03/03/13 10/22/19 History tablet,extended release 24 hr pantoprazole 40 mg tablet,delayed 40 mg PO DAILY Reflux 03/03/13 10/22/19 History release simvastatin 40 mg tablet 40 mg PO QHS cholesterol 03/03/13 10/22/19 History gabapentin 800 mg tablet 800 mg PO TIDCM pain 10/24/19 10/23/19 19:00 History umeclidinium 62.5 mcg-vilanterol 1 puff IN DAILY asthma 10/24/19 10/23/19 History 25 mcg/actuation powdr for inhalation omeprazole 40 mg capsule,delayed 40 mg PO DAILY 11/20/21 Unknown History release albuterol sulfate 90 mcg/actuation 2 puff inhalation Q4H PRN PRN 02/25/24 Unknown History aerosol inhaler wheezing oxycodone-acetaminophen 5 mg-325 1 tab PO Q6H PRN PRN Pain 3 days 02/25/24 Unknown Rx mg tablet #12 TABLETS Allergy/AdvReac Type Severity Reaction Status Date / Time tramadol AdvReac Other Verified 12/01/24 14:10 Surgical History Previous back surgery Social History Smoking Status: Current every day smoker tobacco type: cigarettes EXAM Physical Exam Const Vital Signs: 12/01/24 14:08 12/01/24 14:30 12/01/24 15:08 Temperature 98.1 F Temperature Source Temporal Pulse Rate 85 71 Respiratory Rate 17 16 Respiratory Effort Normal Non-Labored Respiratory Depth Normal Respiratory Pattern Normal Blood Pressure 117/102 H 138/90 H Blood Pressure Mean 107 106 Pulse Ox 95 95 Oxygen Delivery Method Room Air Room Air Room Air 12/01/24 16:00 12/01/24 17:00 12/01/24 18:00 Temperature Temperature Source Pulse Rate 69 61 64 Respiratory Rate 18 16 16 Respiratory Effort Respiratory Depth Respiratory Pattern Blood Pressure 126/88 H 133/80 H 143/86 H Blood Pressure Mean 100 97 105 Pulse Ox 95 94 94 Oxygen Delivery Method Room Air Room Air Room Air MDM MDM MDM Narrative Medical decision making narrative: 69-year-old male with past medical history of HTN, HLD, GERD presents for evaluation of right heel pain after a fall. Patient states he was on a ladder approximately 6 feet high when he fell off. States he landed straight up on his right lower extremity. States that he was not wearing shoes and that he landed on concrete. States he immediately felt pain and a crack in his right heel. Patient states that the pain radiates up into his right knee. He was able to ambulate after the incident and his friend brought him to the emergency department. Not on blood thinners. Did not hit his head. No LOC. See physical exam findings. Differential diagnosis includes but is not limited to calcaneus fracture, foot fracture, tibia/fibular fracture. Will obtain x-rays of the calcaneus to the knee. Do not feel that any further imaging or x-ray is needed at this time. Oxycodone ordered for pain. X-ray of the foot, tib-fib, ankle, knee, calcaneus were personally reviewed interpreted by me, ED physician. No obvious fracture or dislocation. Radiology in agreement. On reevaluation, patient still significant tenderness to palpation of his calcaneus therefore we will perform CT of the right ankle and foot to assess for missed fracture. CT shows an acute nondisplaced fracture of the medial plantar aspect of the dorsal calcaneus. Given finding, podiatry was consulted and I spoke with Dr. Morin. Okay for walking boot placement instead of splint. Patient to remain nonweightbearing on the right lower extremity. RICE therapy. Follow-up in his office. Patient was updated of all the results and confirmed understanding of the plan. He was given a prescription for a walking boot and crutches. Narcotics for severe pain. Return precautions explained. He confirmed understand the plan. Patient stable to discharge home. Impression: 1. Nondisplaced fracture of the medial plantar aspect of the dorsal calcaneus 2. Fall from height Radiography Diagnostic Testing: Clinical Impression(s) from Imaging Studies Ankle X-Ray 12/01/24 15:00 IMPRESSION: No radiopaque foreign body is seen. Right foot, right ankle, and right calcaneus: On lateral images, normal contour of the Achilles tendon is seen. No ankle joint effusion is noted. Mild degenerative changes are seen of the ankle joint, particularly medially laterally, but without apparent joint narrowing. Minimal to mild degenerative changes are seen of the toes and 1st metatarsophalangeal joint. Chronic apparent deformity of the neck and proximal head of the right 5th metatarsal bone. Additional deformity suggest prior healed fracture of the site. No acute fracture or dislocation is seen. If clinical concern persists, short-term follow-up imaging may be obtained to rule out a currently occult fracture. Right tibia and fibula: No fracture or dislocation is noted. If clinical concern persists, short-term follow-up imaging may be obtained to rule out a currently occult fracture. Right knee: No right knee joint effusion is seen. Overall mild right knee degenerative changes are seen, but with moderate medial joint narrowing present. No acute fracture or dislocation is seen. If clinical concern persists, short-term follow-up imaging may be obtained to rule out a currently occult fracture. Reading Location: [facility] Foot X-Ray 12/01/24 15:00 IMPRESSION: No radiopaque foreign body is seen. Right foot, right ankle, and right calcaneus: On lateral images, normal contour of the Achilles tendon is seen. No ankle joint effusion is noted. Mild degenerative changes are seen of the ankle joint, particularly medially laterally, but without apparent joint narrowing. Minimal to mild degenerative changes are seen of the toes and 1st metatarsophalangeal joint. Chronic apparent deformity of the neck and proximal head of the right 5th metatarsal bone. Additional deformity suggest prior healed fracture of the site. No acute fracture or dislocation is seen. If clinical concern persists, short-term follow-up imaging may be obtained to rule out a currently occult fracture. Right tibia and fibula: No fracture or dislocation is noted. If clinical concern persists, short-term follow-up imaging may be obtained to rule out a currently occult fracture. Right knee: No right knee joint effusion is seen. Overall mild right knee degenerative changes are seen, but with moderate medial joint narrowing present. No acute fracture or dislocation is seen. If clinical concern persists, short-term follow-up imaging may be obtained to rule out a currently occult fracture. Reading Location: [facility] Knee X-Ray 12/01/24 15:00 IMPRESSION: No radiopaque foreign body is seen. Right foot, right ankle, and right calcaneus: On lateral images, normal contour of the Achilles tendon is seen. No ankle joint effusion is noted. Mild degenerative changes are seen of the ankle joint, particularly medially laterally, but without apparent joint narrowing. Minimal to mild degenerative changes are seen of the toes and 1st metatarsophalangeal joint. Chronic apparent deformity of the neck and proximal head of the right 5th metatarsal bone. Additional deformity suggest prior healed fracture of the site. No acute fracture or dislocation is seen. If clinical concern persists, short-term follow-up imaging may be obtained to rule out a currently occult fracture. Right tibia and fibula: No fracture or dislocation is noted. If clinical concern persists, short-term follow-up imaging may be obtained to rule out a currently occult fracture. Right knee: No right knee joint effusion is seen. Overall mild right knee degenerative changes are seen, but with moderate medial joint narrowing present. No acute fracture or dislocation is seen. If clinical concern persists, short-term follow-up imaging may be obtained to rule out a currently occult fracture. Reading Location: [facility] Os Calcis X-ray 12/01/24 15:00 IMPRESSION: No radiopaque foreign body is seen. Right foot, right ankle, and right calcaneus: On lateral images, normal contour of the Achilles tendon is seen. No ankle joint effusion is noted. Mild degenerative changes are seen of the ankle joint, particularly medially laterally, but without apparent joint narrowing. Minimal to mild degenerative changes are seen of the toes and 1st metatarsophalangeal joint. Chronic apparent deformity of the neck and proximal head of the right 5th metatarsal bone. Additional deformity suggest prior healed fracture of the site. No acute fracture or dislocation is seen. If clinical concern persists, short-term follow-up imaging may be obtained to rule out a currently occult fracture. Right tibia and fibula: No fracture or dislocation is noted. If clinical concern persists, short-term follow-up imaging may be obtained to rule out a currently occult fracture. Right knee: No right knee joint effusion is seen. Overall mild right knee degenerative changes are seen, but with moderate medial joint narrowing present. No acute fracture or dislocation is seen. If clinical concern persists, short-term follow-up imaging may be obtained to rule out a currently occult fracture. Reading Location: [facility] Tibia/Fibula X-Ray 12/01/24 15:00 IMPRESSION: No radiopaque foreign body is seen. Right foot, right ankle, and right calcaneus: On lateral images, normal contour of the Achilles tendon is seen. No ankle joint effusion is noted. Mild degenerative changes are seen of the ankle joint, particularly medially laterally, but without apparent joint narrowing. Minimal to mild degenerative changes are seen of the toes and 1st metatarsophalangeal joint. Chronic apparent deformity of the neck and proximal head of the right 5th metatarsal bone. Additional deformity suggest prior healed fracture of the site. No acute fracture or dislocation is seen. If clinical concern persists, short-term follow-up imaging may be obtained to rule out a currently occult fracture. Right tibia and fibula: No fracture or dislocation is noted. If clinical concern persists, short-term follow-up imaging may be obtained to rule out a currently occult fracture. Right knee: No right knee joint effusion is seen. Overall mild right knee degenerative changes are seen, but with moderate medial joint narrowing present. No acute fracture or dislocation is seen. If clinical concern persists, short-term follow-up imaging may be obtained to rule out a currently occult fracture. Reading Location: [place] [address] 12/01/24 16:25 IMPRESSION: Acute nondisplaced fracture medial plantar aspect of the dorsal calcaneus. Reading Location: [facility] Discharge Plan Triage Chief Complaint: Trauma ED Provider: Rai Escalante Dx/Rx/DC Orders Prescriptions: No Action simvastatin 40 MG tablet 40 mg PO QHS pantoprazole 40 MG tablet 40 mg PO DAILY metoprolol succinate 25 MG tablet 25 mg PO QHS gabapentin 800 MG tablet 800 mg PO TIDCM umeclidinium-vilanterol 62.5-25 mcg/actuation blister with device 1 puff IN DAILY Patient Comments: INHALE 1 PUFF BY MOUTH ONCE DAILY omeprazole 40 mg capsule,delayed release(DR/EC) 40 mg PO DAILY albuterol sulfate 90 mcg/actuation HFA aerosol inhaler 2 puff INHALATION Q4H PRN PRN (Reason: wheezing) oxycodone-acetaminophen 5-325 mg tablet 1 tab PO Q6H PRN PRN (Reason: Pain) 3 Days Qty: 12 0RF Primary Care Provider: LAMAR LEWIS Referrals: Ousmane Lopez DO [Non-Staff] - Print Language: Swedish
--- NOTE | 2024-12-01 15:00 | RAD_ITS ---
PROCEDURE: CALCANEUS MIN 2 VIEWS; FOOT MIN 3 VIEWS; TIBIA FIBULA 2 VIEWS; KNEE 4 OR MORE VIEWS; ANKLE MIN 3 VIEWS 12/01/2024 REASON FOR EXAM: TRAUMA TECHNIQUE: Procedure Code: RADHE; RADFO; RADTF; RADKN; RADANK Modality: DX Procedure: CALCANEUS MIN 2 VIEWS; FOOT MIN 3 VIEWS; TIBIA FIBULA 2 VIEWS; KNEE 4 OR MORE VIEWS; ANKLE MIN 3 VIEWS Laterality: Right COMPARISON: None. RAD/Calcaneus min 2 Views IMPRESSION: No radiopaque foreign body is seen. Right foot, right ankle, and right calcaneus: On lateral images, normal contour of the Achilles tendon is seen. No ankle joint effusion is noted. Mild degenerative changes are seen of the ankle joint, particularly medially la terally, but without apparent joint narrowing. Minimal to mild degenerative changes are seen of the toes and 1st metatarsophal angeal joint. Chronic apparent deformity of the neck and proximal head of the right 5th metat arsal bone. Additional deformity suggest prior healed fracture of the site. No acute fracture or dislocation is seen. If clinical concern persists, short-term follow-up imaging may be obtained to r ule out a currently occult fracture. Right tibia and fibula: No fracture or dislocation is noted. If clinical concern persists, short-term follow-up imaging may be obtained to r ule out a currently occult fracture. Right knee: No right knee joint effusion is seen. Overall mild right knee degenerative changes are seen, but with moderate medial joint narrowing present. No acute fracture or dislocation is seen. If clinical concern persists, short-term follow-up imaging may be obtained to r ule out a currently occult fracture. Reading Location: [place] [address]
--- NOTE | 2024-12-01 15:00 | RAD_ITS ---
PROCEDURE: CALCANEUS MIN 2 VIEWS; FOOT MIN 3 VIEWS; TIBIA FIBULA 2 VIEWS; KNEE 4 OR MORE VIEWS; ANKLE MIN 3 VIEWS 12/01/2024 REASON FOR EXAM: TRAUMA TECHNIQUE: Procedure Code: RADHE; RADFO; RADTF; RADKN; RADANK Modality: DX Procedure: CALCANEUS MIN 2 VIEWS; FOOT MIN 3 VIEWS; TIBIA FIBULA 2 VIEWS; KNEE 4 OR MORE VIEWS; ANKLE MIN 3 VIEWS Laterality: Right COMPARISON: None. RAD/Foot min 3 Views IMPRESSION: No radiopaque foreign body is seen. Right foot, right ankle, and right calcaneus: On lateral images, normal contour of the Achilles tendon is seen. No ankle joint effusion is noted. Mild degenerative changes are seen of the ankle joint, particularly medially la terally, but without apparent joint narrowing. Minimal to mild degenerative changes are seen of the toes and 1st metatarsophal angeal joint. Chronic apparent deformity of the neck and proximal head of the right 5th metat arsal bone. Additional deformity suggest prior healed fracture of the site. No acute fracture or dislocation is seen. If clinical concern persists, short-term follow-up imaging may be obtained to r ule out a currently occult fracture. Right tibia and fibula: No fracture or dislocation is noted. If clinical concern persists, short-term follow-up imaging may be obtained to r ule out a currently occult fracture. Right knee: No right knee joint effusion is seen. Overall mild right knee degenerative changes are seen, but with moderate medial joint narrowing present. No acute fracture or dislocation is seen. If clinical concern persists, short-term follow-up imaging may be obtained to r ule out a currently occult fracture. Reading Location: [place] [id number]
--- NOTE | 2024-12-01 15:00 | RAD_ITS ---
PROCEDURE: CALCANEUS MIN 2 VIEWS; FOOT MIN 3 VIEWS; TIBIA FIBULA 2 VIEWS; KNEE 4 OR MORE VIEWS; ANKLE MIN 3 VIEWS 12/01/2024 REASON FOR EXAM: TRAUMA TECHNIQUE: Procedure Code: RADHE; RADFO; RADTF; RADKN; RADANK Modality: DX Procedure: CALCANEUS MIN 2 VIEWS; FOOT MIN 3 VIEWS; TIBIA FIBULA 2 VIEWS; KNEE 4 OR MORE VIEWS; ANKLE MIN 3 VIEWS Laterality: Right COMPARISON: None. RAD/Knee 4 or More Views IMPRESSION: No radiopaque foreign body is seen. Right foot, right ankle, and right calcaneus: On lateral images, normal contour of the Achilles tendon is seen. No ankle joint effusion is noted. Mild degenerative changes are seen of the ankle joint, particularly medially la terally, but without apparent joint narrowing. Minimal to mild degenerative changes are seen of the toes and 1st metatarsophal angeal joint. Chronic apparent deformity of the neck and proximal head of the right 5th metat arsal bone. Additional deformity suggest prior healed fracture of the site. No acute fracture or dislocation is seen. If clinical concern persists, short-term follow-up imaging may be obtained to r ule out a currently occult fracture. Right tibia and fibula: No fracture or dislocation is noted. If clinical concern persists, short-term follow-up imaging may be obtained to r ule out a currently occult fracture. Right knee: No right knee joint effusion is seen. Overall mild right knee degenerative changes are seen, but with moderate medial joint narrowing present. No acute fracture or dislocation is seen. If clinical concern persists, short-term follow-up imaging may be obtained to r ule out a currently occult fracture. Reading Location: [place] [id number]
--- NOTE | 2024-12-01 15:00 | RAD_ITS ---
PROCEDURE: CALCANEUS MIN 2 VIEWS; FOOT MIN 3 VIEWS; TIBIA FIBULA 2 VIEWS; KNEE 4 OR MORE VIEWS; ANKLE MIN 3 VIEWS 12/01/2024 REASON FOR EXAM: TRAUMA TECHNIQUE: Procedure Code: RADHE; RADFO; RADTF; RADKN; RADANK Modality: DX Procedure: CALCANEUS MIN 2 VIEWS; FOOT MIN 3 VIEWS; TIBIA FIBULA 2 VIEWS; KNEE 4 OR MORE VIEWS; ANKLE MIN 3 VIEWS Laterality: Right COMPARISON: None. RAD/Ankle min 3 Views IMPRESSION: No radiopaque foreign body is seen. Right foot, right ankle, and right calcaneus: On lateral images, normal contour of the Achilles tendon is seen. No ankle joint effusion is noted. Mild degenerative changes are seen of the ankle joint, particularly medially la terally, but without apparent joint narrowing. Minimal to mild degenerative changes are seen of the toes and 1st metatarsophal angeal joint. Chronic apparent deformity of the neck and proximal head of the right 5th metat arsal bone. Additional deformity suggest prior healed fracture of the site. No acute fracture or dislocation is seen. If clinical concern persists, short-term follow-up imaging may be obtained to r ule out a currently occult fracture. Right tibia and fibula: No fracture or dislocation is noted. If clinical concern persists, short-term follow-up imaging may be obtained to r ule out a currently occult fracture. Right knee: No right knee joint effusion is seen. Overall mild right knee degenerative changes are seen, but with moderate medial joint narrowing present. No acute fracture or dislocation is seen. If clinical concern persists, short-term follow-up imaging may be obtained to r ule out a currently occult fracture. Reading Location: [place] [id number]
--- NOTE | 2024-12-01 15:00 | RAD_ITS ---
PROCEDURE: CALCANEUS MIN 2 VIEWS; FOOT MIN 3 VIEWS; TIBIA FIBULA 2 VIEWS; KNEE 4 OR MORE VIEWS; ANKLE MIN 3 VIEWS 12/01/2024 REASON FOR EXAM: TRAUMA TECHNIQUE: Procedure Code: RADHE; RADFO; RADTF; RADKN; RADANK Modality: DX Procedure: CALCANEUS MIN 2 VIEWS; FOOT MIN 3 VIEWS; TIBIA FIBULA 2 VIEWS; KNEE 4 OR MORE VIEWS; ANKLE MIN 3 VIEWS Laterality: Right COMPARISON: None. RAD/Tibia & Fibula 2 Views IMPRESSION: No radiopaque foreign body is seen. Right foot, right ankle, and right calcaneus: On lateral images, normal contour of the Achilles tendon is seen. No ankle joint effusion is noted. Mild degenerative changes are seen of the ankle joint, particularly medially la terally, but without apparent joint narrowing. Minimal to mild degenerative changes are seen of the toes and 1st metatarsophal angeal joint. Chronic apparent deformity of the neck and proximal head of the right 5th metat arsal bone. Additional deformity suggest prior healed fracture of the site. No acute fracture or dislocation is seen. If clinical concern persists, short-term follow-up imaging may be obtained to r ule out a currently occult fracture. Right tibia and fibula: No fracture or dislocation is noted. If clinical concern persists, short-term follow-up imaging may be obtained to r ule out a currently occult fracture. Right knee: No right knee joint effusion is seen. Overall mild right knee degenerative changes are seen, but with moderate medial joint narrowing present. No acute fracture or dislocation is seen. If clinical concern persists, short-term follow-up imaging may be obtained to r ule out a currently occult fracture. Reading Location: [place] [id number]
--- NOTE | 2024-12-01 16:25 | CT_ITS ---
PROCEDURE: CT RIGHT LOWER EXTREMITY WITHOUT CONTRAST 12/01/2024 REASON FOR EXAM: PAIN, TRAUMA TECHNIQUE: Procedure Code: CTELWO Modality: CT Procedure: EXTREMITY LOWER WITHOUT CONTRA Noncontrast CT of the right ankle/foot. Multiplanar 2D reconstructions were performed. One or more dose reduction techniques were used (e.g., Automated exposure control, adjustment of the mA and/or kV according to patient size, use of iterative reconstruction technique). RADIATION DOSE SUMMARY: CTDlvol: 15.35 mGy DLP: 522.62 mGycm COMPARISON: Radiographs earlier same day 12/01/2024. FINDINGS: Acute nondisplaced fracture at the medial plantar aspect of the dorsal calcaneus. No additional acute fracture or dislocation. Alignment is anatomic. Preserved joint spaces. Os trigonum noted. Normal bone mineralization. Mild soft tissue swelling at the heel of the foot. CT/Extremity Lower without Contra IMPRESSION: Acute nondisplaced fracture medial plantar aspect of the dorsal calcaneus. Reading Location: [facility]
== END 2024-12-01 19:59 | disposition home or self-care (01) ==
PROVIDERS: Emergency Provider Surgery; PCP Nurse Practitioner Family; Visit Provider Surgery
DX: S92.001A Unspecified fracture of right calcaneus, initial encounter for closed fracture (principal); S90.511A Abrasion, right ankle, initial encounter; M25.561 Pain in right knee; W11.XXXA Fall on and from ladder, initial encounter; I10 Essential (primary) hypertension; E78.5 Hyperlipidemia, unspecified; K21.9 Gastro-esophageal reflux disease without esophagitis; Z79.899 Other long term (current) drug therapy; F17.210 Nicotine dependence, cigarettes, uncomplicated
CPT/HCPCS: 73564; 73590; 73610; 73630; 73650; 73700; 99285